=== PATIENT | female | born 1925 | race Hispanic/Latino ===

== ENCOUNTER 2016-12-28 16:06 | Inpatient (IN) | payer MEDICARE, BC ==
[2016-12-28 16:39] VITALS: BMI 26.6
--- NOTE | 2016-12-28 17:07 | C.PDOC ---
History Of Present Illness Angelica Osullivan, an 89 year old female, is brought into the emergency department by her post fall.Per , the patient fell in the house on Tuesday and then began to complain of left arm pain. He states that the patient asked him to remove her walker from in front of her so she could get into bed and when he did so she just fell over, he says she did not lose consciousness. The states that the patient did not come into the emergency department sooner because she did not want to. He states that this is not the patient's first time falling and she does fall frequently. PMD: Dr. Roberts Time Seen by Provider: 12/28/16 16:40 Chief Complaint (Nursing): Upper Extremity Problem/Injury History Per: Patient History/Exam Limitations: no limitations Past Medical History Reviewed: Historical Data, Nursing Documentation, Vital Signs Vital Signs: Last Vital Signs Temp 98.3 F 12/28/16 16:30 Pulse 78 12/28/16 16:30 Resp 20 12/28/16 16:30 BP 192/82 H 12/28/16 16:30 Pulse Ox 95 12/28/16 17:27 - Medical History PMH: Dementia, Diabetes, Fractures (Fracture of right shoulder, 2yrs ago; fracture of the left wrist a year ago), HTN, Hypothyroidism (Thyroidectomy), Osteoporosis Denies: Chronic Kidney Disease Surgical History: Cholecystectomy, Tonsillectomy (20 yrs ago) - [facility] INFLUENZA VACCINATION (04/06/14) OCCUPATIONAL THERAPY (04/06/14) PHYSICAL THERAPY NEC (04/06/14) Family History: States: Unknown Family Hx - Social History Hx Alcohol Use: No Hx Substance Use: No Review Of Systems Except As Marked, All Systems Reviewed And Found Negative. 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) Chest: No Deformity, No Tenderness Cardiovascular: Rhythm Regular Respiratory: Normal Breath Sounds, No Wheezing Extremity: No Normal ROM (Decreased ROM to left arm.), Tenderness (Generalized body tenderness), No Deformity, Swelling (Swelling to left elbow), Other ( Bruising and crepitus to left elbow.) Neurological/Psych: Oriented x3 ED Course And Treatment O2 Sat by Pulse Oximetry: 95 (RA) Pulse Ox Interpretation: Normal Medical Decision Making Medical Decision Makin Initial Impression:89 year old female presenting with left arm injury secondary to fall Initial Plan: * RAD Left elbow * RAD Left forearm * RAD Left humerus * Reevaluation Scribe Attestation Documented by Jane Rao acting as a scribe fro Debbie Javier MD. Provider Attestation All medical record entries made by the scribe were at my direction and personally dictated by me. I have reviewed the chart and agree that the record accurately reflects my personal performance, history, physical exam, medical decision making, and the department course for this patient. Ihave also personally directed, reviewed, and agree with the discharge instructions and disposition. spoke with Dr. Muro Disposition Discussed With : Devonte Lopes Doctor Will See Patient In The: Hospital Counseled Patient/Family Regarding: Studies Performed, Diagnosis - Disposition Disposition Time: 18:52 Condition: GUARDED Forms: [facility] (Maltese) - Clinical Impression Clinical Impression: Fall, Fracture, humerus closed Decision To Admit - Pt Status Changed To: Hospital Disposition Of: Inpatient - Admit Certification Admit to Inpatient:: After my assessment, the patient will require hospitalization for at least two midnights. This is because of the severity of symptoms shown, intensity of services needed, and/or the medical risk in this patient being treated as an outpatient. - InPatient: Physician Admission Certification: I certify that this patient requires 2 or more midnights of care for the following reason:: patient s/p fall, fracture, multiple comorbidiries - . Bed Request Type: Regular Patient Diagnosis: Fall, Fracture, humerus closed
[2016-12-28 20:11] LABS: BASO % 0.5 % (0.0-2.0); EOS # 0.1 K/uL (0.0-0.7); EOS % 1.4 % (0.0-4.0); HEMOGLOBIN 13.6 g/dL (11.0-16.0); LYMPH % 22.1 % (20.0-40.0); MEAN CELL VOLUME 91.5 fL (81.0-99.0); MEAN CORPUSCULAR HEMOGLOBIN 32.1 pg (27.0-31.0); MEAN PLATELET VOLUME 7.4 fL (7.2-11.7); MONO # 0.6 K/uL (0.0-0.8); MONO % 7.3 % (0.0-10.0); NEUT # 6.1 K/uL (1.8-7.0); NEUT % 68.7 % (50.0-75.0); RBC 4.24 Mil/uL (3.80-5.20); RED CELL DISTRIBUTION WIDTH 13.9 % (11.5-14.5); WHITE BLOOD COUNT 8.9 K/uL (4.8-10.8)
[2016-12-28 20:18] LABS: SQUAMOUS EPITHIAL 15 /hpf (0-5); URINE BACTERIA MANY (<OCC); URINE BILIRUBIN NEGATIVE (NEGATIVE); URINE BLOOD 1+ (NEGATIVE); URINE CLARITY Hazy (Clear); URINE GLUCOSE (UA) 3+ mg/dL (Normal); URINE LEUKOCYTE ESTERASE 3+ Leu/uL (Negative); URINE NITRATE POSITIVE (NEGATIVE); URINE PROTEIN 1+ mg/dL (NEGATIVE); URINE UROBILINOGEN NORMAL mg/dL (0.2-1.0)
[2016-12-28 20:20] LABS: ALBUMIN 3.2 g/dL (3.5-5.0)
[2016-12-28 20:22] LABS: URINE COLOR YELLOW (YELLOW)
[2016-12-28 20:23] LABS: ALB/GLOB RATIO 0.9 (1.0-2.1); AST/SGOT 26 U/L (14-36); BLOOD UREA NITROGEN 10 mg/dL (7-17); CALCIUM 8.7 mg/dl (8.6-10.4); GFR AFRICAN-AMERICAN > 60; GFR NON-AFRICAN AMERICAN > 60
[2016-12-28 20:24] LABS: ALT/SGPT 25 U/L (9-52)
[2016-12-28] MEDS ORDERED: cefTRIAXone IV 1 gm in Dextros 50 ML IVPB ONE (21:04)
[2016-12-28] MEDS ORDERED: cefTRIAXone IV 1 gm in Dextros 1 GM in Dextrose 5% In Water 50 ML IVPB STA (21:17)
[2016-12-28] MEDS ORDERED: cefTRIAXone IV 1 gm in Dextros 50 ML IVPB STA (21:20)
--- NOTE | 2016-12-28 21:21 | CT ---
EXAM: CT Head Without Intravenous Contrast CLINICAL HISTORY: 89 years old, female; Injury or trauma; Fall; Initial encounter; Abrasion; Head, generalized; Additional info: R/O bleed TECHNIQUE: Axial computed tomography images of the head/brain without intravenous contrast. This CT exam was performed using one or more of the following dose reduction techniques: automated exposure control, adjustment of the mA and/or kV according to patient size, and/or use of iterative reconstruction technique. Coronal and sagittal reformatted images were created and reviewed. COMPARISON: No relevant prior studies available. FINDINGS: Brain: [id number]-rs-[id number] atrophy. Small faint ill-defined hyperdensity within brain stem. Minimal decreased attenuation within periventricular white matter. No edema. Ventricles: No hydrocephalus. Bones/joints: No acute fracture. Soft tissues: Fatty replacement of LEFT parotid gland. Small dermal lesion LEFT periorbital region. Vasculature: Atherosclerotic disease of intracranial arteries. Sinuses: Scattered minimal mucosal thickening. Mastoid air cells: No mastoid effusion. Orbits: LEFT phthisis bulbi. IMPRESSION: 1. Faint hyperdensity within brain stem, indeterminate significance. Hemorrhage not entirely excluded. Compare with prior examinations if available. 2. Nonspecific white matter changes. 3. Incidental/non-acute findings are described above.
--- NOTE | 2016-12-28 21:24 | CT ---
EXAM: CT Cervical Spine Without Intravenous Contrast CLINICAL HISTORY: 89 years old, female; Injury or trauma; Fall; Initial encounter; Abrasion; Additional info: Neck pain TECHNIQUE: Axial computed tomography images of the cervical spine without intravenous contrast. This CT exam was performed using one or more of the following dose reduction techniques: automated exposure control, adjustment of the mA and/or kV according to patient size, and/or use of iterative reconstruction technique. Coronal and sagittal reformatted images were created and reviewed. COMPARISON: No relevant prior studies available. FINDINGS: Vertebrae: No acute fracture. Mild chronic biconcave vertebral deformities. Discs/spinal canal/neural foramina: No significant spinal canal stenosis. Soft tissues: Unremarkable. Vasculature: Mild atherosclerotic disease. Lung apices: Unremarkable as visualized. IMPRESSION: 1. No fracture. 2. Incidental/non-acute findings are described above.
[2016-12-29 08:11] LABS: HEMOGLOBIN 12.8 g/dL (11.0-16.0); MEAN CELL VOLUME 91.4 fL (81.0-99.0); MEAN CORPUSCULAR HEMOGLOBIN 31.2 pg (27.0-31.0); MEAN CORPUSCULAR HGB CONC 34.2 g/dL (33.0-37.0); MEAN PLATELET VOLUME 7.7 fL (7.2-11.7); RBC 4.1 Mil/uL (3.80-5.20); RED CELL DISTRIBUTION WIDTH 13.8 % (11.5-14.5); WHITE BLOOD COUNT 10.1 K/uL (4.8-10.8)
--- NOTE | 2016-12-29 08:17 | CP.PCM.HP ---
History of Present Illness - History of Present Illness History of Present Illness: Angelica Osullivan, an 89 year old female, is brought into the emergency department by her post fall.Per , the patient fell in the house on Tuesday and then began to complain of left arm pain. He states that the patient asked him to remove her walker from in front of her so she could get into bed and when he did so she just fell over, he says she did not lose consciousness. The states that the patient did not come into the emergency department sooner because she did not want to. He states that this is not the patient's first time falling and she does fall frequently. 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) Hx Cataracts: Yes - RENAL Hx Chronic Kidney Disease: No - ENDOCRINE/METABOLIC Hx Hypothyroidism: Yes (Thyroidectomy) - HEMATOLOGICAL/ONCOLOGICAL Hx Blood Disorders: No - INTEGUMENTARY Hx Dermatological Problems: No - MUSCULOSKELETAL/RHEUMATOLOGICAL Hx Falls: Yes Hx Fractures: Yes (Fracture of right shoulder, 2yrs ago; fracture of the left wrist a year ago) Hx Osteoporosis: Yes - GASTROINTESTINAL Other/Comment: on and off abdominal pain attributed to gas - GENITOURINARY/GYNECOLOGICAL Hx Genitourinary Disorders: No - PSYCHIATRIC Hx Substance Use: No - SURGICAL HISTORY Hx Cholecystectomy: Yes Hx Tonsillectomy: Yes (20 yrs ago) - ANESTHESIA Hx Anesthesia: Yes Hx Anesthesia Reactions: No Meds Allergies/Adverse Reactions: Allergies Allergy/AdvReac Type Severity Reaction Status Date / Time No Known Allergies Allergy Verified 04/09/14 10:52 Results - Vital Signs Recent Vital Signs: Last Vital Signs Temp 98.1 F 12/28/16 23:17 Pulse 80 12/28/16 23:17 Resp 20 12/28/16 23:17 BP 171/95 H 12/28/16 23:17 Pulse Ox 95 12/28/16 23:17 - Labs Result Diagrams: 12/29/16 08:03 12/29/16 08:03 Labs: Laboratory Results - last 24 hr 12/28/16 12/28/16 12/28/16 20:05 20:05 20:07 WBC 8.9 RBC 4.24 Hgb 13.6 Hct 38.8 MCV 91.5 MCH 32.1 H MCHC 35.0 RDW 13.9 Plt Count 334 D MPV 7.4 Neut % (Auto) 68.7 Lymph % (Auto) 22.1 [place] % (Auto) 7.3 Eos % (Auto) 1.4 Baso % (Auto) 0.5 Neut # 6.1 Lymph # 2.0 Drew # 0.6 Eos # 0.1 Baso # 0.0 Sodium 135 Potassium 3.0 L Chloride 90 L Carbon Dioxide 33 H Anion Gap 15 BUN 10 Creatinine 0.6 L Est GFR ( Amer) > 60 Est GFR (Non-Af Amer) > 60 Random Glucose 210 H Calcium 8.7 Total Bilirubin 1.0 AST 26 ALT 25 Alkaline Phosphatase 88 Troponin I 0.0360 Total Protein 6.5 Albumin 3.2 L D Globulin 3.4 Albumin/Globulin Ratio 0.9 L Urine Color Yellow Urine Clarity Hazy Urine pH 6.0 Ur Specific [place] 1.010 Urine Protein 1+ H Urine Glucose (UA) 3+ H Urine Ketones Trace Urine Blood 1+ H Urine Nitrate Positive H Urine Bilirubin Negative Urine Urobilinogen Normal Ur Leukocyte Esterase 3+ H Urine WBC (Auto) 54 H Urine RBC (Auto) 8 H Ur Squamous Epith Cells 15 H Ur Transition Epith Cell 1 Urine Bacteria Many H Hyaline Casts 3-5 H Urine Yeast (Budding) Occ H 12/29/16 08:03 WBC 10.1 RBC 4.10 Hgb 12.8 Hct 37.5 MCV 91.4 MCH 31.2 H MCHC 34.2 RDW 13.8 Plt Count 311 MPV 7.7 Neut % (Auto) Lymph % (Auto) [place] % (Auto) Eos % (Auto) Baso % (Auto) Neut # Lymph # Drew # Eos # Baso # Sodium Potassium Chloride Carbon Dioxide Anion Gap BUN Creatinine Est GFR ( Amer) Est GFR (Non-Af Amer) Random Glucose Calcium Total Bilirubin AST ALT Alkaline Phosphatase Troponin I Total Protein Albumin Globulin Albumin/Globulin Ratio Urine Color Urine Clarity Urine pH Ur Specific [place] Urine Protein Urine Glucose (UA) Urine Ketones Urine Blood Urine Nitrate Urine Bilirubin Urine Urobilinogen Ur Leukocyte Esterase Urine WBC (Auto) Urine RBC (Auto) Ur Squamous Epith Cells Ur Transition Epith Cell Urine Bacteria Hyaline Casts Urine Yeast (Budding) Assessment & Plan (1) Fall Status: Acute (2) Fracture, supracondylar, humerus, left, closed Assessment and Plan: reatively nondisplaced imaging reviewed left forearm/humerus/elbow, no other fx/dislocation appreciated , f/u official reports splint, sling, NWB will review imaging with Dr. Muro PT/OT VTEproph, sequentials and lovenox noted Status: Acute (3) DM type 2 (diabetes mellitus, type 2) Status: Acute (4) DVT prophylaxis Status: Acute
[2016-12-29 08:29] LABS: GFR AFRICAN-AMERICAN > 60; GFR NON-AFRICAN AMERICAN > 60
[2016-12-29 08:30] LABS: BLOOD UREA NITROGEN 9 mg/dL (7-17); CALCIUM 8.5 mg/dl (8.6-10.4); HDL CHOLESTEROL 36 mg/dL (30-70)
--- NOTE | 2016-12-29 09:00 | CP.PCM.CON ---
History of Present Illness - History of Present Illness History of Present Illness: Orthopedic consultation requested Dr. Muro for left arm pain 89F compains of left arm pain after a fall 3 days ago. She says she usually walks with walker, but she wasn't using walker at time of fall. She denies pain in right UE, denies pain in back, neck, legs currently. Patient asks which hospital she is at, and is somewhat confused today. Currently denies CP/SOB/ dizziness/n/v/numbness/tingling. Imaging reviewed, patient with prior right humeral shaft fx, left wrist fx, pubic ramus fx from prior falls. PMH from chart: HTN, dementia, hypothyroid s/p thyroidectomy PSH: cholecystectomy, as above Review of Systems - Review of Systems Systems not reviewed;Unavailable: Dementia All systems: reviewed and no additional remarkable complaints except - Constitutional Additional comments: denies fever/chills - Cardiovascular Cardiovascular: As Per HPI - Respiratory Respiratory: As Per HPI - Gastrointestinal Gastrointestinal: As Per HPI - Genitourinary Additional comments: denies dysuria - Musculoskeletal Musculoskeletal: As Per HPI - Hematologic/Lymphatic Hematologic: absent: As Per HPI, Easy Bleeding, Easy Bruising, Lymphadenopathy, Other Past Patient History - Infectious Disease Hx of Infectious Diseases: None - Past Medical History & Family History Past Medical History?: Yes Past Family History: Reviewed and not pertinent - Past Social History Smoking Status: Never Smoked - CARDIAC Hx Hypertension: Yes - PULMONARY Hx Respiratory Disorders: No - NEUROLOGICAL Hx Dementia: Yes - HEENT Hx HEENT Problems: Yes 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) Hx Cataracts: Yes - RENAL Hx Chronic Kidney Disease: No - ENDOCRINE/METABOLIC Hx Hypothyroidism: Yes (Thyroidectomy) - HEMATOLOGICAL/ONCOLOGICAL Hx Blood Disorders: No - INTEGUMENTARY Hx Dermatological Problems: No - MUSCULOSKELETAL/RHEUMATOLOGICAL Hx Falls: Yes Hx Fractures: Yes (R superior ramus fx 2013, Right humerus 2010 and L wrist fx 2011) Hx Osteoporosis: Yes - GASTROINTESTINAL Other/Comment: on and off abdominal pain attributed to gas - GENITOURINARY/GYNECOLOGICAL Hx Genitourinary Disorders: No - PSYCHIATRIC Hx Substance Use: No - SURGICAL HISTORY Hx Cholecystectomy: Yes Hx Tonsillectomy: Yes (20 yrs ago) - ANESTHESIA Hx Anesthesia: Yes Hx Anesthesia Reactions: No Meds Allergies/Adverse Reactions: Allergies Allergy/AdvReac Type Severity Reaction Status Date / Time No Known Allergies Allergy Verified 04/09/14 10:52 - Medications Medications: Current Medications Enoxaparin Sodium (Lovenox) 40 mg SC DAILY LENIN Physical Exam - Constitutional Appears: Well, No Acute Distress - Head Exam Head Exam: ATRAUMATIC, NORMAL INSPECTION - Neck Exam Neck exam: Positive for: Full Rom, Normal Inspection - Respiratory Exam Respiratory Exam: NORMAL BREATHING PATTERN - Cardiovascular Exam Additional comments: +radial pulse LUE - Extremities Exam Additional comments: long arm splint intact to left arm, nontender to left shoulder. BLE: +ROM ankles/knees/hips without pain, no swelling, deformity, discoloration. +DP pulses, calves soft NT neg homans RUE: +radial pulse, sensation intact, no pain with ROM - Expanded Upper Extremities Exam Left Neuro motor exam: finger 2-5 abduction intact, thumb abduction, thumb IP flexion intact, thumb opposition intact, wrist extension intact Neurosensory exam: median nerve intact, radial nerve intact, ulnar nerve intact Vascular exam: normal capillary refill - Neurological Exam Neurological exam: Alert - Psychiatric Exam Psychiatric exam: Normal Affect, Normal Mood - Skin Skin Exam: Dry, Intact, Normal Color, Warm Results - Vital Signs Recent Vital Signs: Last Vital Signs Temp 98.1 F 12/28/16 23:17 Pulse 80 12/28/16 23:17 Resp 20 12/28/16 23:17 BP 171/95 H 12/28/16 23:17 Pulse Ox 95 12/28/16 23:17 - Labs Result Diagrams: 12/29/16 08:03 12/29/16 08:03 Labs: Laboratory Results - last 24 hr 12/28/16 12/28/16 12/28/16 20:05 20:05 20:07 WBC 8.9 RBC 4.24 Hgb 13.6 Hct 38.8 MCV 91.5 MCH 32.1 H MCHC 35.0 RDW 13.9 Plt Count 334 D MPV 7.4 Neut % (Auto) 68.7 Lymph % (Auto) 22.1 [place] % (Auto) 7.3 Eos % (Auto) 1.4 Baso % (Auto) 0.5 Neut # 6.1 Lymph # 2.0 [place] # 0.6 Eos # 0.1 Baso # 0.0 Sodium 135 Potassium 3.0 L Chloride 90 L Carbon Dioxide 33 H Anion Gap 15 BUN 10 Creatinine 0.6 L Est GFR ( Amer) > 60 Est GFR (Non-Af Amer) > 60 Random Glucose 210 H Calcium 8.7 Total Bilirubin 1.0 AST 26 ALT 25 Alkaline Phosphatase 88 Troponin I 0.0360 Total Protein 6.5 Albumin 3.2 L D Globulin 3.4 Albumin/Globulin Ratio 0.9 L Triglycerides Cholesterol HDL Cholesterol Urine Color Yellow Urine Clarity Hazy Urine pH 6.0 Ur Specific [place] 1.010 Urine Protein 1+ H Urine Glucose (UA) 3+ H Urine Ketones Trace Urine Blood 1+ H Urine Nitrate Positive H Urine Bilirubin Negative Urine Urobilinogen Normal Ur Leukocyte Esterase 3+ H Urine WBC (Auto) 54 H Urine RBC (Auto) 8 H Ur Squamous Epith Cells 15 H Ur Transition Epith Cell 1 Urine Bacteria Many H Hyaline Casts 3-5 H Urine Yeast (Budding) Occ H 12/29/16 12/29/16 08:03 08:03 WBC 10.1 RBC 4.10 Hgb 12.8 Hct 37.5 MCV 91.4 MCH 31.2 H MCHC 34.2 RDW 13.8 Plt Count 311 MPV 7.7 Neut % (Auto) Lymph % (Auto) [place] % (Auto) Eos % (Auto) Baso % (Auto) Neut # Lymph # [place] # Eos # Baso # Sodium 137 Potassium 3.3 L Chloride 95 L Carbon Dioxide 32 H Anion Gap 13 BUN 9 Creatinine 0.7 Est GFR ( Amer) > 60 Est GFR (Non-Af Amer) > 60 Random Glucose 229 H Calcium 8.5 L Total Bilirubin AST ALT Alkaline Phosphatase Troponin I Total Protein Albumin Globulin Albumin/Globulin Ratio Triglycerides 60 Cholesterol 106 HDL Cholesterol 36 Urine Color Urine Clarity Urine pH Ur Specific [place] Urine Protein Urine Glucose (UA) Urine Ketones Urine Blood Urine Nitrate Urine Bilirubin Urine Urobilinogen Ur Leukocyte Esterase Urine WBC (Auto) Urine RBC (Auto) Ur Squamous Epith Cells Ur Transition Epith Cell Urine Bacteria Hyaline Casts Urine Yeast (Budding) Assessment & Plan (1) Fracture, supracondylar, humerus, left, closed Assessment and Plan: reatively nondisplaced imaging reviewed left forearm/humerus/elbow, no other fx/dislocation appreciated , f/u official reports splint, sling, NWB will review imaging with Dr. Muro PT/OT VTEproph, sequentials and lovenox noted Addendum: D/w Dr. Muro who reviewed xrays. States to continue posterior splint, NWB, non operative management of fracture. Patient to f/u in office in 1 -2 weeks for cast placement after swelling improves [phone]. Orthopedically stable for d/c. PT/OT eval pending, as patient will be unable to use walker for ambulation due to LUE restrictions at this time. Status: Acute Radiology Interpretation - Oxidized Finish Plater Oxidized Finish Plater:: Radiologist, Dye Mixer - Radiology Interpretation #2 Interpretation: Accession No. : [id number] Patient Name / ID : MONICA TRAN / [id number] Exam Date : 12/28/2016 17:41:30 ( Approved ) Study Comment : Sex / Age : F / 89Y Creator : dominic hu Dictator : GLORIA FAUSTIN MD Lunch Wagon Operator : Dishtank Operator : GLORIA FAUSTIN MD Approver2 : Report Date : 12/28/2016 17:53:15 My Comment : PROCEDURE: Radiographs of the left elbow. HISTORY: fall 2 days ago, elbow pain COMPARISON: No prior. FINDINGS: BONES: There is an acute transverse nondisplaced fracture in the distal humerus through the condyles. There is diffuse bone demineralization. JOINTS: Normal. No osteoarthritis. SOFT TISSUES: Normal. JOINT EFFUSION: There is a moderate joint effusion OTHER FINDINGS: None IMPRESSION: Acute transverse nondisplaced fracture in the distal humerus through the condyles and moderate joint effusion. Accession No. : [id number] Patient Name / ID : MONICA TRAN / [id number] Exam Date : 12/28/2016 17:39:03 ( Approved ) Study Comment : Sex / Age : F / 89Y Creator : dominic hu Dictator : GLORIA FAUSTIN MD Lunch Wagon Operator : Dishtank Operator : GLORIA FAUSTIN MD Approver2 : Report Date : 12/28/2016 17:47:38 My Comment : PROCEDURE: Radiographs of the Left Forearm HISTORY: fall 2 days ago, elbow pain COMPARISON: None available. TECHNIQUE: Frontal and lateral views obtained. FINDINGS: BONES: Acute transverse nondisplaced fracture in the distal humerus through the condyles. Bone alignment is normal. There is diffuse bone demineralization. JOINT SPACES: Unremarkable. OTHER FINDINGS: There is periarticular soft tissue swelling. IMPRESSION: Acute transverse nondisplaced fracture in the distal humerus through the condyles. Patient Name / ID : MONICA Almodovar [id number] Exam Date : 12/28/2016 17:30:32 ( Approved ) Study Comment : Sex / Age : F / 89Y Creator : dominic hu Dictator : GLORIA FAUSTIN MD Lunch Wagon Operator : Dishtank Operator : GLORIA FAUSTIN MD Approver2 : Report Date : 12/28/2016 17:47:39 My Comment : PROCEDURE: Radiographs of the left humerus. HISTORY: fall 2 days ago, elbow pain COMPARISON: None. FINDINGS: BONES: There is an acute nondisplaced fracture in the distal humerus. There is diffuse bone demineralization. SOFT TISSUES: Normal. OTHER FINDINGS: None. IMPRESSION: Acute transverse nondisplaced fracture in the distal humerus. - Radiology Interpretation #3 Interpretation: Patient Name / ID : MONICA TRAN / [id number] Exam Date : 12/28/2016 20:14:10 ( Approved ) Study Comment : Sex / Age : F / 89Y Creator : Hair Ware MD Dictator : Lunch Wagon Operator : Dishtank Operator : Hair Ware MD Approver2 : Report Date : 12/28/2016 21:24:00 My Comment : [facility] Division of Radiology [address] [place] [address] Tel. no. Patient Name: CHELSEA ANDERSON Pt. Address: [address] [place] [address] Rec #: [id number] [place] [address]: Yaya VILLA, Debbie Guerrero Pt Order Location: [facility] : 1925 Female Age: 89 Order #: [id number] Reason for exam: neck pain CT Scan CERVICAL SPINE W/O CONTRAST Exam Date: 12/28/16 This imaging exam was performed at EXAM: CT Cervical Spine Without Intravenous Contrast CLINICAL HISTORY: 89 years old, female; Injury or trauma; Fall; Initial encounter; Abrasion; Additional info: Neck pain TECHNIQUE: Axial computed tomography images of the cervical spine without intravenous contrast. This CT exam was performed using one or more of the following dose reduction techniques: automated exposure control, adjustment of the mA and/or kV according to patient size, and/or use of iterative reconstruction technique. Coronal and sagittal reformatted images were created and reviewed. COMPARISON: No relevant prior studies available. FINDINGS: Vertebrae: No acute fracture. Mild chronic biconcave vertebral deformities. Discs/spinal canal/neural foramina: No significant spinal canal stenosis. Soft tissues: Unremarkable. Vasculature: Mild atherosclerotic disease. Lung apices: Unremarkable as visualized. IMPRESSION: 1. No fracture. 2. Incidental/non-acute findings are described above. Dictated By: Hair Ware MD Dictated Date/Time: 12/28/162123 Signed By: Hair Ware MD Date Signed: [id number] Transcribed By: [facility] Transcribe Date/Time : 12/28/162123 [id number]/LEXA
[2016-12-29 09:01] LABS: LDL CHOLESTEROL 49 mg/dL (0-129)
[2016-12-29] MEDS ORDERED: cefTRIAXone IV 1 gm in Dextros 1 GM in Dextrose 5% In Water 50 ML IVPB SCH (10:00)
--- NOTE | 2016-12-29 10:33 | RAD ---
PROCEDURE: CHEST RADIOGRAPH, 1 VIEW HISTORY: Shortness of breath COMPARISON: None available. FINDINGS: LUNGS: The lungs are clear. PLEURA: No pneumothorax or pleural fluid seen. CARDIOVASCULAR: Normal. OSSEOUS STRUCTURES: No significant abnormalities. VISUALIZED UPPER ABDOMEN: Normal. OTHER FINDINGS: None. IMPRESSION: No active pulmonary disease.
--- NOTE | 2016-12-29 10:48 | RAD ---
PROCEDURE: Radiographs of the left humerus. HISTORY: fall 2 days ago, elbow pain COMPARISON: None. FINDINGS: BONES: There is an acute nondisplaced fracture in the distal humerus. There is diffuse bone demineralization. SOFT TISSUES: Normal. OTHER FINDINGS: None. IMPRESSION: Acute transverse nondisplaced fracture in the distal humerus.
--- NOTE | 2016-12-29 10:50 | RAD ---
PROCEDURE: Radiographs of the left elbow. HISTORY: fall 2 days ago, elbow pain COMPARISON: No prior. FINDINGS: BONES: There is an acute transverse nondisplaced fracture in the distal humerus through the condyles. There is diffuse bone demineralization. JOINTS: Normal. No osteoarthritis. SOFT TISSUES: Normal. JOINT EFFUSION: There is a moderate joint effusion OTHER FINDINGS: None IMPRESSION: Acute transverse nondisplaced fracture in the distal humerus through the condyles and moderate joint effusion.
--- NOTE | 2016-12-29 10:51 | RAD ---
PROCEDURE: Radiographs of the Left Forearm HISTORY: fall 2 days ago, elbow pain COMPARISON: None available. TECHNIQUE: Frontal and lateral views obtained. FINDINGS: BONES: Acute transverse nondisplaced fracture in the distal humerus through the condyles. Bone alignment is normal. There is diffuse bone demineralization. JOINT SPACES: Unremarkable. OTHER FINDINGS: There is periarticular soft tissue swelling. IMPRESSION: Acute transverse nondisplaced fracture in the distal humerus through the condyles.
--- NOTE | 2016-12-29 11:14 | CP.PCM.PN ---
Subjective - Date & Time of Evaluation Date of Evaluation: 12/29/16 Time of Evaluation: 21:00 - Subjective Subjective: FEELS PAINM, L ARM, NO NAUSEA, SHE HAS SLIGHT CONFUSION, NO CHEST PAIN, NO SOB, NO COUGH Objective - Vital Signs/Intake and Output Vital Signs (last 24 hours): Temp Pulse Resp BP Pulse Ox 98.1 F 80 20 171/95 H 95 12/28/16 23:17 12/28/16 23:17 12/28/16 23:17 12/28/16 23:17 12/28/16 23:17 Intake and Output: 12/29/16 12/29/16 06:59 18:59 Intake Total 220 150 Balance 220 150 - Medications Medications: Current Medications Enoxaparin Sodium (Lovenox) 40 mg SC DAILY [facility] Potassium Chloride (K-Dur 20 Meq Er Tab) 40 meq PO DAILY [facility] Stop: 12/31/16 10:01 - Labs Labs: 12/29/16 08:03 12/29/16 08:03 - Constitutional Appears: Non-toxic, In Acute Distress - Head Exam Head Exam: ATRAUMATIC, NORMAL INSPECTION, NORMOCEPHALIC - Eye Exam Eye Exam: EOMI (L EYE DEFORMITY) - ENT Exam ENT Exam: Mucous Membranes Moist, Normal Exam - Neck Exam Neck Exam: Normal Inspection - Respiratory Exam Respiratory Exam: Clear to Ausculation Bilateral, NORMAL BREATHING PATTERN - Cardiovascular Exam Cardiovascular Exam: REGULAR RHYTHM, +S1, +S2 - GI/Abdominal Exam GI & Abdominal Exam: Soft, Normal Bowel Sounds - Rectal Exam Rectal Exam: NORMAL INSPECTION - Extremities Exam Extremities Exam: Full ROM, Normal Capillary Refill - Neurological Exam Neurological Exam: Abnormal Gait, Alert, Awake Assessment and Plan (1) Fall Status: Acute (2) Fracture, supracondylar, humerus, left, closed Status: Acute (3) DM type 2 (diabetes mellitus, type 2) Status: Chronic (4) HTN (hypertension) Status: Chronic
--- NOTE | 2016-12-29 11:31 | MRI ---
PROCEDURE: MRI BRAIN WITHOUT CONTRAST HISTORY: cva COMPARISON: Head CT without contrast 12/28/2016. TECHNIQUE: Multiplanar, multisequence MR images of the brain were obtained without intravenous contrast enhancement. Technologist was unable to obtain IV access for this patient. FINDINGS: HEMORRHAGE: No definitive intracranial hemorrhage is appreciated including in the gradient echo sequence. The radiodensity seen in the ofelia in the prior head CT 12/28/2016 has no correlate in terms of signal abnormality throughout this brain MR exam and remains of uncertain origin. It may be chronic calcification. DWI: No evidence of an acute or early subacute infarction. BRAIN PARENCHYMA: Moderate diffuse cerebral atrophy is appreciated and there is mild chronic microangiopathy identified primarily in the periventricular white matter. A small infarction about the right parieto-occipital region posteriorly No atrophy or chronic microvascular ischemic changes. ENHANCEMENT: No abnormal intracranial enhancement. VENTRICLES: Unremarkable. No hydrocephalus. CRANIUM: Unremarkable. ORBITS: Grossly unremarkable. PARANASAL SINUSES/MASTOIDS: Clear VASCULAR SYSTEM: Skull base flow voids intact. OTHER FINDINGS: None . IMPRESSION: 1. No definite acute intracranial findings are identified. 2. 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 3. Moderate age related neuro degenerate change identified. 4. The small density seen in the central ofelia in the prior CT exam 12/28/2016 does not have any correlate this MR examination. Consider follow-up brain MRI with contrast if intravenous access can be maintained. The etiology of this finding remains unclear. It could reflect represent minimal calcification but this is not definite.
[2016-12-29] MEDS: Potassium Chloride 20 mEq ER Tab PO SCH (12:12)
[2016-12-29] MEDS: Enoxaparin 40 mg Syringe SC SCH (12:13)
--- NOTE | 2016-12-29 12:26 | CARD ---
APPROVED REPORT EKG Measurement Heart [id number] <Conclusion> Normal sinus rhythm Left axis deviation Inferior infarct, age undetermined Cannot rule out Anterior infarct, age undetermined Abnormal ECG
[2016-12-29] MEDS: (Novolog) Insulin Aspart, Recombinant 100 u/ml 10 ml vial SC SCH ×2 (17:32→22:16)
--- NOTE | 2016-12-30 01:02 | CON ---
NEUROLOGY CONSULTATION DATE: 12/29/2016 TIME: 07:05 a.m. REASON FOR THE CONSULTATION: Status post fall and abnormal CAT scan findings. CHIEF COMPLAINT: The patient was brought into [facility] with history of fall at home from the chair. No clear history of head trauma. The patient did have CT of the head in the emergency room some abnormal findings in the CAT scan. From neurological point of view, I was called in to evaluate her for further management. HISTORY OF PRESENTING ILLNESS: Ms. Angelica Osullivan is an 89-year-old right-handed female, history of fall on Tuesday while she was removing her walker, she slipped and fell on the floor. No history of headache. No history of head trauma. No history of loss of consciousness. No history of involuntary movement, bowel or bladder incontinence has been seen. The patient did have a CT of the head, find some abnormal signals in the brainstem. From neurological point of view, I was called in to evaluate her for further management. PAST MEDICAL HISTORY: Dementia, [id number] diabetes mellitus, and hypothyroidism. PERSONAL HISTORY: Denies smoking or alcohol use. ALLERGIES: NO KNOWN ALLERGIES. REVIEW OF SYSTEMS: All 12 point systems been reviewed. Agreed with the documentation except from neurological point, did fall, and has dementia. MEDICATIONS: Donepezil, ceftriaxone, glipizide, potassium supplement, Lovenox, multivitamin, insulin, Protonix, levothyroxine, tramadol, lisinopril, and Tylenol. PHYSICAL EXAMINATION: VITAL SIGNS: Blood pressure 166/86, mean arterial pressure of 112, respiratory rate 16, and temperature afebrile. NECK: Supple. No carotid bruit. HEART: Sounds NSR. CHEST: Fair air entry. EXTREMITIES: No edema of legs. NEUROLOGICAL: The patient is awake, alert, and oriented to person, place and time. Speech is clear. CRANIAL NERVE EXAMINATION: Left eye is closed because of her traumatic injury in the past. No vision in the left. Right eye, extraocular movement is normal. Pupils reactive to light. No nystagmus. No facial or sensory deficit. No facial asymmetry. Hearing is normal. Tongue is midline. Good gag. MOTOR: Outstretched hand with eyes closed. No drift noted. Power is symmetric on either side. She could able to lift both lower extremities against the gravity. Left upper extremity has been in the soft cast because of the trauma from the fall. COORDINATION: Qbgnpu-[id number]-[id number] test is intact on the right side. Deep tendon reflexes are trace. Plantars are downgoing on both sides. CONCLUSION: Upon reviewing history and neurological examination, Ms. Angelica Osullivan has been presenting with mild form of cognitive dysfunction, this could be senile dementia of Alzheimer's type or mild cognitive impairment. Considering her risk factors, this could be a vascular dementia. WORKUP: CT of the head reviewed by me showed some lucency in the pontine lesion with high signal, I doubt patient does have any bleed at that region, however, brain showed atrophy. EKG; normal sinus rhythm. MRI of the brain showed decreased atrophy and periventricular ischemic changes noted. The CAT scan finding, which was not convinced or any abnormal signal in the pontine region. LABORATORY DATA: WBC 8.9, hemoglobin 13.6, hematocrit 38.6, and platelet 334. Sodium 135, potassium 3.0, chloride 90, bicarbonate 33, BUN 10, creatinine 0.6, GFR more than 60, glucose 210, and calcium 8.7. Urinalysis shows 1+ proteinuria, 3+ glucose, 1+ blood, and bacteria shows many. IMPRESSION AND PLAN: 1. Patient should be on antiplatelet small dose to prevent stroke. I agree to continue Aricept for her dementia. 2. Patient should have followup with orthopedic surgeon for her traumatic fracture in her left shoulder. 3. Diabetic control. Blood pressure control has been discussed with her. 4. Patient will be followed closely with you. Hai Smyth MD MTDD
[2016-12-30] MEDS: Levothyroxine 150 MCG TAB PO SCH (05:37)
--- NOTE | 2016-12-30 07:36 | CP.PCM.PN ---
Subjective - Date & Time of Evaluation Date of Evaluation: 12/30/16 Time of Evaluation: 07:33 - Subjective Subjective: Patient complains of elbow pain during exam. Slightly more confused today, not oriented to place, and does not remember fall today. Review of Systems - Review of Systems All systems: reviewed and no additional remarkable complaints except - Cardiovascular Cardiovascular: UNREMARKABLE - Respiratory Respiratory: UNREMARKABLE - Gastrointestinal Gastrointestinal: UNREMARKABLE - Genitourinary Genitourinary: UNREMARKABLE - Musculoskeletal Musculoskeletal: As Par HPI - Integumentary Integumentary: UNREMARKABLE - Neurological Neurological: UNREMARKABLE - Hematologic/Lymphatic Hematologic: UNREMARKABLE Objective - Vital Signs/Intake and Output Vital Signs (last 24 hours): Temp Pulse Resp BP Pulse Ox 98.2 F 80 20 173/97 H 95 12/30/16 06:47 12/30/16 06:47 12/30/16 06:47 12/30/16 06:47 12/30/16 06:47 Intake and Output: 12/30/16 12/30/16 06:59 18:59 Intake Total 200 Balance 200 - Medications Medications: Current Medications Acetaminophen (Tylenol 325mg Tab) 650 mg PO Q6 PRN PRN Reason: Pain, moderate (4-7) Last Admin: 12/30/16 05:40 Dose: 650 mg Donepezil HCl (Aricept) 5 mg PO HS [facility] Last Admin: 12/29/16 22:16 Dose: 5 mg Enoxaparin Sodium (Lovenox) 40 mg SC DAILY [facility] Last Admin: 12/29/16 12:13 Dose: 40 mg Ceftriaxone Sodium 1 gm/ (Sodium Chloride) 100 mls @ 200 mls/hr IVPB Q24H [facility] Insulin Aspart (Novolog) 0 unit SC ACHS [facility] PRN Reason: Protocol Last Admin: 12/29/16 22:16 Dose: Not Given Levothyroxine Sodium (Synthroid) 150 mcg PO DAILY@0630 [facility] Last Admin: 12/30/16 05:37 Dose: 150 mcg Lisinopril (Zestril) 20 mg PO DAILY [facility] Multivitamins/Vitamin C (Multi-Delyn Liquid) 5 ml PO DAILY [facility] Pantoprazole Sodium (Protonix Ec Tab) 40 mg PO DAILY [facility] Potassium Chloride (K-Dur 20 Meq Er Tab) 40 meq PO DAILY [facility] Stop: 12/31/16 10:01 Last Admin: 12/29/16 12:12 Dose: 40 meq Sitagliptin Phosphate (Januvia) 50 mg PO DAILY [facility] Tramadol HCl (Ultram) 50 mg PO TID PRN PRN Reason: Pain, severe (8-10) Last Admin: 12/30/16 03:06 Dose: 50 mg - Labs Labs: 12/29/16 08:03 12/29/16 08:03 - Head Exam Head Exam: ATRAUMATIC, NORMAL INSPECTION - Neck Exam Neck Exam: Full ROM, Normal Inspection Additional comments: non tender - Respiratory Exam Respiratory Exam: NORMAL BREATHING PATTERN - Cardiovascular Exam Additional comments: +radial pulse LUE - Extremities Exam Additional comments: LUE: splint intact, reinforced. Sensation intact to med/ulnar/rad nerve. fingers warm, good cap refill BLE: calves soft NT neg homans, venodynes intact - Neurological Exam Neurological Exam: Alert, Awake Neuro motor strength exam: Left Upper Extremity: 5 (+ROM fingers flex/ext/abd/ add, wrist flex/ext) - Psychiatric Exam Psychiatric exam: Normal Affect, Normal Mood - Skin Skin Exam: Dry, Intact, Normal Color, Warm Assessment and Plan (1) Fracture, supracondylar, humerus, left, closed Assessment & Plan: non operative posterior splint sling PT/OT, awaiting eval patient to f/u 1-2 weeks in office of Dr. Muro for follow up imaging and cast placement. Call for appointment [phone]. d/w Dr. Muro, agrees with above Status: Acute (2) UTI (urinary tract infection) Assessment & Plan: on admission sensitivity pending on rocephin tx as per medical team Status: Acute (3) Fall Assessment & Plan: PT/OT eval ambulation training NWB LUE Status: Acute
[2016-12-30 07:47] LABS: BLOOD UREA NITROGEN 7 mg/dL (7-17); CALCIUM 8.9 mg/dl (8.6-10.4); GFR AFRICAN-AMERICAN > 60; GFR NON-AFRICAN AMERICAN > 60
[2016-12-30] MEDS: (Novolog) Insulin Aspart, Recombinant 100 u/ml 10 ml vial SC SCH ×4 (08:17→21:49)
--- NOTE | 2016-12-30 08:19 | PN ---
DATE: 12/30/2016 TIME OF EVALUATION: 07:10 a.m. 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 PHYSICAL EXAMINATION: VITAL SIGNS: Blood pressure 173/97, mean arterial pressure of 122, respiratory rate 16, and temperature 98.2, pulse rate 80 regular. The patient is awake, alert, oriented to person, place and time. No sign of confusion, no sign of depression. She slept good. Besides her left shoulder problem nothing else at present. The examination is unchanged. Her recent blood sugar 275. The patient should continue her cholinesterase inhibitor for her dementia. Continue aspirin for stroke prophylaxis. Blood pressure should be controlled to keep the mean artery pressure around 100. When medically stable, the patient should get a physical therapy and rehabilitation should be addressed. Orthopedic followup for her shoulder injury. From Neuro she does not need any further workup. If clinically indicated please do not hesitate to call me back. Hai Smyth MD MTDKaur
[2016-12-30] MEDS: Potassium Chloride 20 mEq ER Tab PO SCH (10:34)
[2016-12-30] MEDS: Pantoprazole 40 mg EC Tab PO SCH (10:34)
[2016-12-30] MEDS: Enoxaparin 40 mg Syringe SC SCH (10:34)
[2016-12-30] MEDS: Multiple Vitamins Oral Solution PO SCH (11:12)
[2016-12-31] MEDS: Levothyroxine 150 MCG TAB PO SCH (06:15)
--- NOTE | 2016-12-31 07:41 | CP.PCM.PN ---
Subjective - Date & Time of Evaluation Date of Evaluation: 12/31/16 Time of Evaluation: 07:38 - Subjective Subjective: Patient complains of pain in elbow during exam. Denies numbness/tingling. No new complaints. Objective - Vital Signs/Intake and Output Vital Signs (last 24 hours): Temp Pulse Resp BP Pulse Ox 97.9 F 79 20 101/67 99 12/30/16 23:16 12/30/16 23:16 12/30/16 23:16 12/30/16 23:16 12/30/16 23:16 Intake and Output: 12/31/16 12/31/16 06:59 18:59 Intake Total 640 Balance 640 - Medications Medications: Current Medications Acetaminophen (Tylenol 325mg Tab) 650 mg PO Q6 PRN PRN Reason: Pain, moderate (4-7) Last Admin: 12/30/16 22:12 Dose: 650 mg Amlodipine Besylate (Norvasc) 5 mg PO DAILY [facility] Last Admin: 12/30/16 10:34 Dose: 5 mg Donepezil HCl (Aricept) 5 mg PO HS [facility] Last Admin: 12/30/16 21:50 Dose: 5 mg Enoxaparin Sodium (Lovenox) 40 mg SC DAILY [facility] Last Admin: 12/30/16 10:34 Dose: 40 mg Ceftriaxone Sodium 1 gm/ (Sodium Chloride) 100 mls @ 200 mls/hr IVPB Q24H [facility] Last Admin: 12/30/16 13:37 Dose: 200 mls/hr Insulin Aspart (Novolog) 0 unit SC ACHS [facility] PRN Reason: Protocol Last Admin: 12/30/16 21:49 Dose: 2 unit Levothyroxine Sodium (Synthroid) 150 mcg PO DAILY@0630 [facility] Last Admin: 12/31/16 06:15 Dose: 150 mcg Lisinopril (Zestril) 20 mg PO DAILY [facility] Last Admin: 12/30/16 13:36 Dose: 20 mg Multivitamins/Vitamin C (Multi-Delyn Liquid) 5 ml PO DAILY [facility] Last Admin: 12/30/16 11:12 Dose: 5 ml Pantoprazole Sodium (Protonix Ec Tab) 40 mg PO DAILY [facility] Last Admin: 12/30/16 10:34 Dose: 40 mg Sitagliptin Phosphate (Januvia) 50 mg PO DAILY [facility] Last Admin: 12/30/16 10:34 Dose: 50 mg Tramadol HCl (Ultram) 50 mg PO TID PRN PRN Reason: Pain, severe (8-10) Last Admin: 12/30/16 10:35 Dose: 50 mg - Labs Labs: 12/29/16 08:03 12/30/16 07:10 - Constitutional Appears: No Acute Distress - Head Exam Head Exam: ATRAUMATIC, NORMAL INSPECTION - Respiratory Exam Respiratory Exam: NORMAL BREATHING PATTERN - Cardiovascular Exam Additional comments: +radial pulse - Extremities Exam Additional comments: Sensation intact to med/rad/ulnar nerve distrib good cap refill no shoulder tenderness skin intact splint and sling intact - Neurological Exam Neurological Exam: Alert Neuro motor strength exam: Left Upper Extremity: 5 (finger flex/ext/add/abd, wrist flex/ext) - Psychiatric Exam Psychiatric exam: Normal Affect, Normal Mood - Skin Skin Exam: Dry, Intact, Normal Color, Warm Assessment and Plan (1) Fracture, supracondylar, humerus, left, closed Assessment & Plan: non operative per Dr. Muro splint/sling at all times PT/OT notes appreciated encourage OOBTC VTE proph, +venodynes pending rehab placement f/u Dr. Muro 1-2 weeks call for appointment [phone] d/w Dr. Muro, agrees with above Status: Acute (2) UTI (urinary tract infection) Assessment & Plan: on admission E. coli sensitive to rocephin tx as per Dr. Lopes Status: Acute (3) Fall Assessment & Plan: continue PT/OT JUAN R Status: Acute
[2016-12-31] MEDS: (Novolog) Insulin Aspart, Recombinant 100 u/ml 10 ml vial SC SCH ×3 (08:46→17:11)
[2016-12-31] MEDS: Pantoprazole 40 mg EC Tab PO SCH (10:17)
[2016-12-31] MEDS: Enoxaparin 40 mg Syringe SC SCH (10:17)
[2016-12-31] MEDS: Multiple Vitamins Oral Solution PO SCH (10:18)
--- NOTE | 2016-12-31 15:40 | CP.PCM.PN ---
Subjective - Date & Time of Evaluation Date of Evaluation: 12/31/16 Time of Evaluation: 12:40 - Subjective Subjective: Pt seen an dexamined today, c/o pain to left arm , denies any headache, numbness, tinglings, to the left arm left arm splint in place Objective - Vital Signs/Intake and Output Vital Signs (last 24 hours): Temp Pulse Resp BP Pulse Ox 97.9 F 79 20 101/67 99 12/30/16 23:16 12/30/16 23:16 12/30/16 23:16 12/30/16 23:16 12/30/16 23:16 Intake and Output: 12/31/16 12/31/16 06:59 18:59 Intake Total 640 220 Balance 640 220 - Medications Medications: Current Medications Acetaminophen (Tylenol 325mg Tab) 650 mg PO Q6 PRN PRN Reason: Pain, moderate (4-7) Last Admin: 12/30/16 22:12 Dose: 650 mg Amlodipine Besylate (Norvasc) 5 mg PO DAILY [facility] Last Admin: 12/31/16 10:17 Dose: 5 mg Donepezil HCl (Aricept) 5 mg PO HS [facility] Last Admin: 12/30/16 21:50 Dose: 5 mg Enoxaparin Sodium (Lovenox) 40 mg SC DAILY [facility] Last Admin: 12/31/16 10:17 Dose: 40 mg Ceftriaxone Sodium 1 gm/ (Sodium Chloride) 100 mls @ 200 mls/hr IVPB Q24H [facility] Last Admin: 12/31/16 14:15 Dose: 200 mls/hr Insulin Aspart (Novolog) 0 unit SC ACHS [facility] PRN Reason: Protocol Last Admin: 12/31/16 12:37 Dose: 6 unit Levothyroxine Sodium (Synthroid) 150 mcg PO DAILY@0630 [facility] Last Admin: 12/31/16 06:15 Dose: 150 mcg Lisinopril (Zestril) 20 mg PO DAILY [facility] Last Admin: 12/31/16 10:17 Dose: 20 mg Multivitamins/Vitamin C (Multi-Delyn Liquid) 5 ml PO DAILY [facility] Last Admin: 12/31/16 10:18 Dose: 5 ml Pantoprazole Sodium (Protonix Ec Tab) 40 mg PO DAILY [facility] Last Admin: 12/31/16 10:17 Dose: 40 mg Sitagliptin Phosphate (Januvia) 50 mg PO DAILY [facility] Last Admin: 12/31/16 10:17 Dose: 50 mg Tramadol HCl (Ultram) 50 mg PO TID PRN PRN Reason: Pain, severe (8-10) Last Admin: 12/30/16 10:35 Dose: 50 mg - Labs Labs: 12/29/16 08:03 12/30/16 07:10
[2016-12-31 16:35] VITALS: BP 95/61; PULSE 79; RESP 18; TEMP 97.7; O2SAT 95
--- NOTE | 2016-12-31 22:45 | CP.PCM.DIS ---
Provider - Provider Date of Admission: 12/28/16 18:50 Attending physician: Devonte Lopes MD Diagnosis - Discharge Diagnosis (1) Fall Status: Acute (2) Fracture, supracondylar, humerus, left, closed Status: Acute (3) DM type 2 (diabetes mellitus, type 2) Status: Chronic (4) HTN (hypertension) Status: Chronic Hospital Course - Lab Results Lab Results: Micro Results 12/28/16 21:15 Urine,Catheterized Urine Culture - Final Escherichia Coli Most Recent Lab Values WBC 10.1 K/uL (4.8-10.8) 12/29/16 08:03 RBC 4.10 Mil/uL (3.80-5.20) 12/29/16 08:03 Hgb 12.8 g/dL (11.0-16.0) 12/29/16 08:03 Hct 37.5 % (34.0-47.0) 12/29/16 08:03 MCV 91.4 fL (81.0-99.0) 12/29/16 08:03 MCH 31.2 pg (27.0-31.0) H 12/29/16 08:03 MCHC 34.2 g/dL (33.0-37.0) 12/29/16 08:03 RDW 13.8 % (11.5-14.5) 12/29/16 08:03 Plt Count 311 K/uL (130-400) 12/29/16 08:03 MPV 7.7 fL (7.2-11.7) 12/29/16 08:03 Neut % (Auto) 68.7 % (50.0-75.0) 12/28/16 20:05 Lymph % (Auto) 22.1 % (20.0-40.0) 12/28/16 20:05 [place] % (Auto) 7.3 % (0.0-10.0) 12/28/16 20:05 Eos % (Auto) 1.4 % (0.0-4.0) 12/28/16 20:05 Baso % (Auto) 0.5 % (0.0-2.0) 12/28/16 20:05 Neut # 6.1 K/uL (1.8-7.0) 12/28/16 20:05 Lymph # 2.0 K/uL (1.0-4.3) 12/28/16 20:05 [place] # 0.6 K/uL (0.0-0.8) 12/28/16 20:05 Eos # 0.1 K/uL (0.0-0.7) 12/28/16 20:05 Baso # 0.0 K/uL (0.0-0.2) 12/28/16 20:05 Sodium 134 mmol/L (132-148) 12/30/16 07:10 Potassium 4.4 mmol/L (3.6-5.2) 12/30/16 07:10 Chloride 92 mmol/L (98-107) L 12/30/16 07:10 Carbon Dioxide 31 mmol/L (22-30) H 12/30/16 07:10 Anion Gap 15 (10-20) 12/30/16 07:10 BUN 7 mg/dL (7-17) 12/30/16 07:10 Creatinine 0.6 MG/DL (0.7-1.2) L 12/30/16 07:10 Est GFR ( Amer) > 60 12/30/16 07:10 Est GFR (Non-Af Amer) > 60 12/30/16 07:10 POC Glucose (mg/dL) 209 mg/dL (65-110) H 12/31/16 16:42 Random Glucose 265 mg/dL (65-105) H 12/30/16 07:10 Calcium 8.9 mg/dl (8.6-10.4) 12/30/16 07:10 Total Bilirubin 1.0 mg/dL (0.2-1.3) 12/28/16 20:05 AST 26 U/L (14-36) 12/28/16 20:05 ALT 25 U/L (9-52) 12/28/16 20:05 Alkaline Phosphatase 88 U/L (38-126) 12/28/16 20:05 Troponin I 0.0360 ng/mL (0.00-0.120) 12/28/16 20:05 Total Protein 6.5 g/dL (6.3-8.3) 12/28/16 20:05 Albumin 3.2 g/dL (3.5-5.0) L D 12/28/16 20:05 Globulin 3.4 gm/dL (2.2-3.9) 12/28/16 20:05 Albumin/Globulin Ratio 0.9 (1.0-2.1) L 12/28/16 20:05 Triglycerides 60 mg/dL (0-149) 12/29/16 08:03 Cholesterol 106 mg/dL (0-199) 12/29/16 08:03 LDL Cholesterol Direct 49 mg/dL (0-129) 12/29/16 08:03 HDL Cholesterol 36 mg/dL (30-70) 12/29/16 08:03 Urine Color Yellow (YELLOW) 12/28/16 20:07 Urine Clarity Hazy (Clear) 12/28/16 20:07 Urine pH 6.0 (5.0-8.0) 12/28/16 20:07 Ur Specific [place] 1.010 (1.003-1.030) 12/28/16 20:07 Urine Protein 1+ mg/dL (NEGATIVE) H 12/28/16 20:07 Urine Glucose (UA) 3+ mg/dL (Normal) H 12/28/16 20:07 Urine Ketones Trace mg/dL (NEGATIVE) 12/28/16 20:07 Urine Blood 1+ (NEGATIVE) H 12/28/16 20:07 Urine Nitrate Positive (NEGATIVE) H 12/28/16 20:07 Urine Bilirubin Negative (NEGATIVE) 12/28/16 20:07 Urine Urobilinogen Normal mg/dL (0.2-1.0) 12/28/16 20:07 Ur Leukocyte Esterase 3+ Es/uL (Negative) H 12/28/16 20:07 Urine WBC (Auto) 54 /hpf (0-5) H 12/28/16 20:07 Urine RBC (Auto) 8 /hpf (0-3) H 12/28/16 20:07 Ur Squamous Epith Cells 15 /hpf (0-5) H 12/28/16 20:07 Ur Transition Epith Cell 1 /hpf (0-3) 12/28/16 20:07 Urine Bacteria Many (<OCC) H 12/28/16 20:07 Hyaline Casts 3-5 /lpf (0-2) H 12/28/16 20:07 Urine Yeast (Budding) Occ /hpf (NEGATIVE) H 12/28/16 20:07 - Hospital Course Hospital Course: ADMITTED WITH FALL R HUMEROUS FRACTURE AND SHE DID WELL WITH CONSERVATIVE MANAGEMENT, AND SHE IS FOR DISCHARGE Discharge Exam - Head Exam Head Exam: ATRAUMATIC, NORMAL INSPECTION - Eye Exam Pupil Exam: NORMAL ACCOMODATION - ENT Exam ENT Exam: Mucous Membranes Moist, Normal Exam, Normal Oropharynx, TM's Normal Bilaterally - Neck Exam Neck exam: Normal Inspection - Respiratory Exam Respiratory Exam: NORMAL BREATHING PATTERN - Cardiovascular Exam Cardiovascular Exam: REGULAR RHYTHM, +S1, +S2 - GI/Abdominal Exam GI & Abdominal Exam: Normal Bowel Sounds - Rectal Exam Rectal Exam: NORMAL INSPECTION - Extremities Exam Extremities exam: normal capillary refill - Neurological Exam Neurological exam: Abnormal Gait, Alert - Psychiatric Exam Psychiatric exam: Normal Mood - Skin Skin Exam: Intact Discharge Plan - Discharge Medications Prescriptions: Cephalexin [Keflex] 500 mg PO BID #14 capsule - Follow Up Plan Condition: GUARDED Disposition: REHAB FACILITY/REHAB UNIT Instructions: Cephalexin (By mouth), Arm Fracture in Adults (DC), Dementia (GEN ), Fall Prevention for Older Adults (GEN), Fall Prevention (DC) Additional Instructions: Please admit patient under Dr. Lopes service - Please call Dr. Lopes upon patient arrival to the facility Please f/u with Dr. Muro office in 1 -2 weeks - call for [phone] Continue medication as per Med. Rec. KEEP SPLINT ALL TIMES Referrals: Devonte Lopes MD [Staff Provider] -
== END 2016-12-31 18:29 | DRG 563 ==
LOC: C.ER 16:06 → C.9E 18:50 → C.5T 19:16 → C.3T 12-30 06:17
PROVIDERS: ADMIT Internal Medicine; ATTEND Internal Medicine
DX: S42.415A Nondisplaced simple supracondylar fracture without intercondylar fracture of left humerus, initial encounter for closed fracture (principal); N39.0 Urinary tract infection, site not specified; G30.1 Alzheimer's disease with late onset; I10 Essential (primary) hypertension; F02.80 Dementia in other diseases classified elsewhere, unspecified severity, without behavioral disturbance, psychotic disturbance, mood disturbance, and anxiety; W18.39XA Other fall on same level, initial encounter; H54.42 Blindness, left eye, normal vision right eye; Z91.81 History of falling; E03.9 Hypothyroidism, unspecified; M81.0 Age-related osteoporosis without current pathological fracture; Z79.4 Long term (current) use of insulin; Z90.49 Acquired absence of other specified parts of digestive tract; M25.48 Effusion, other site; B96.20 Unspecified Escherichia coli [E. coli] as the cause of diseases classified elsewhere